=== PATIENT | female | born 1990 | race Caucasian/White ===

== ENCOUNTER 2017-08-06 08:15 | Day surgery (SDC) | payer OTHER ==
[2016-03-04 12:27] VITALS: BMI 27.1
[2017-08-06] MEDS ORDERED: Lactated Ringer's 1,000 ML IV ONE ×2 (10:08)
[2017-08-06] MEDS ORDERED: ceFAZolin IV 1 gm in Dextrose 1 GM/50 ML BAG IVPB ONE (10:14)
[2017-08-06] MEDS ORDERED: Bupivacaine HCl 0.25% PF (10 ml) Inj ONE (10:14)
[2017-08-06] MEDS ORDERED: Lidocaine 1% Inj (20ml) ONE (10:14)
[2017-08-06] MEDS ORDERED: Midazolam 2 MG/2 ML VIAL ONE (10:35)
[2017-08-06] MEDS ORDERED: Propofol 10 mg/ml Inj (20 ML) ONE (10:35)
[2017-08-06] MEDS ORDERED: Oxycodone/Acetaminophen 5/325 mg Tab PO PRN (11:15)
[2017-08-06 13:21] VITALS: BP 127/70; PULSE 63; RESP 18; TEMP 97; O2SAT 100
--- NOTE | 2017-08-06 20:37 | OP ---
PROCEDURE DATE: 08/06/2017 PREOPERATIVE DIAGNOSIS: A 5-cm mass of the right shoulder. POSTOPERATIVE DIAGNOSIS: A 5-cm mass of the right shoulder. PROCEDURE PERFORMED: 1. Wide and deep excision (radical resection) 5-cm neoplasm of the right shoulder. 2. Adjacent tissue transfer closure 42 sq cm surface area ([id number]). SURGEON: Doron Velasco MD. ANESTHESIA: General endotracheal. ESTIMATED BLOOD LOSS: 20 mL. POSTOPERATIVE CONDITION: Stable. INDICATIONS FOR SURGERY: A 27-year-old female with enhancing mass on the right shoulder, who now will undergo a wide and deep excision. PROCEDURE: The patient was taken to the operating room, general anesthesia was administered, and the right shoulder was prepped and draped. A generous elliptical incision was made surrounding the mass and dissected into the fascial layer. Bleeding was controlled using the Bovie. The wound was irrigated with saline, and generous tissue flaps were raised using the Bovie. An advancement flap closure approximately 42 sq cm was performed using multiple layers of Monocryl, subcuticular Monocryl, and glue. The patient tolerated the procedure well and returned to the recovery room in stable condition. Doron Velasco MD
== END 2017-08-06 14:30 | disposition home or self-care (01) ==
LOC: C.SDS 08:15
PROVIDERS: ATTEND Surgery
DX: D23.61 Other benign neoplasm of skin of right upper limb, including shoulder (principal)
CPT/HCPCS: 11406; 14301; 88307; J1885; J2250; J2704; J3010; J7120